=== PATIENT | male | born 2000 | race African-American/Black ===

== ENCOUNTER 2020-06-23 10:13 | Day surgery (SDC) | payer OTHER ==
[~2020-06-23] VITALS: Ht 180.3 cm; Wt 74.8 kg
[~2020-06-23 10:13] MED LIST: LR 1,000 ML IV ONE
[2020-06-23] MEDS ORDERED: fentaNYL 250 MCG/5 ML INJECTION (J3010) As Ordered ONE (13:29)
[2020-06-23] MEDS ORDERED: ROCURONIUM BROMIDE 50 MG/5 ML VIAL As Ordered ONE (13:29)
[2020-06-23] MEDS ORDERED: propofoL 200 MG/20 ML VIAL As Ordered ONE (13:29)
[2020-06-23] MEDS ORDERED: LIDOCAINE 2% 100MG/5ML SDV (FOR ANES.) As Ordered ONE (13:29)
[2020-06-23] MEDS ORDERED: MIDAZOLAM INJ 2MG/2ML VIAL (J2250 PER 1MG) As Ordered ONE (13:29)
[2020-06-23] MEDS ORDERED: LIDOCAINE 2% W/ EPINEPHRINE 1.7 ML DENTAL INJ As Ordered ONE (14:18)
[2020-06-23] MEDS ORDERED: OXYMETAZOLINE 0.05% NASAL SPRAY (AFRIN) As Ordered ONE (14:27)
[2020-06-23] MEDS ORDERED: dexameTHASONE 4 MG/ML 1ML VIAL (J1100 PER 1MG) As Ordered ONE (14:45)
[2020-06-23] MEDS ORDERED: ONDANSETRON 4MG/2ML VIAL As Ordered ONE (15:02)
[2020-06-23] MEDS ORDERED: SUGAMMADEX SODIUM 500 MG/5 ML VIAL (BRIDION) As Ordered ONE (15:02)
[2020-06-23] MEDS ORDERED: KETOROLAC 60MG 2ML VIAL As Ordered ONE (15:03)
[2020-06-23] MEDS ORDERED: fentaNYL 100 MCG/2 ML INJECTION (J3010) As Ordered ONE (16:17)
[2020-06-23] MEDS: fentaNYL 100 MCG/2 ML INJECTION (J3010) IV PRN ×4 (16:20→16:35)
[2020-06-23] MEDS ORDERED: PERCOCET 5MG/325MG TAB PO PRN (16:30)
[2020-06-23] MEDS ORDERED: oxyCODONE 5MG TAB PO PRN ×2 (16:30→18:30)
[2020-06-23] MEDS ORDERED: LR 1,000 ML IV SCH ×2 (16:30→18:30)
[2020-06-23] MEDS ORDERED: ONDANSETRON 4MG/2ML VIAL IV PRN ×2 (16:30→18:30)
[2020-06-23] MEDS ORDERED: oxyCODONE 5MG TAB As Ordered ONE (18:02)
[2020-06-23 18:15] VITALS: BP 134/76
[2020-06-23] MEDS ORDERED: fentaNYL 100 MCG/2 ML INJECTION (J3010) IV PRN (18:30)
[2020-06-23] MEDS ORDERED: CHLORHEXIDINE GLUCONATE 0.12 % 15ML UDC (PERIDEX ORAL RINSE) SSP SCH (21:00)
--- NOTE | 2020-07-07 13:37 | RO ---
DATE OF OPERATION: 06/23/2020 INDICATION FOR SURGERY: This 19-year-old male with past medical history significant for G6PD deficiency and previous extraction of tooth #1 under IV sedation during which time the patient became combative, was reevaluated at the [facility]. The patient was deemed an appropriate candidate for extraction of teeth 16, 17 and 32 under general anesthesia due to his combative nature while under IV sedation. The patient was scheduled for [facility] to have teeth 16, 17 and 32 extracted under general nasoendotracheal anesthesia. PREOPERATIVE DIAGNOSES: * Impacted malposed symptomatic teeth 16, 17 and 32. * Missing tooth #1. POSTOPERATIVE DIAGNOSES: Consistent with preoperative diagnoses and indications for surgery. SURGEON: Danny Blake DMD LABORATORY SPECIMENS: Teeth 16, 17 and 32 were submitted in formalin for pathologic examination. FINDINGS: Unremarkable. OPERATIONS PERFORMED: * Extraction of full bony impacted teeth #17 and 32. * Surgical extraction of tooth #16. ANESTHESIA: General nasoendotracheal. DESCRIPTION OF OPERATION: The patient was identified in the preoperative holding area of [facility] where again the risks, benefits, complications and alternatives to the proposed surgery were discussed with the patient. The patient again verbally expressed the desire to proceed with the proposed surgery and signed the surgical consent form. The appropriate consent form was verified to be present in the patients chart signed by the patient and witnessed. The patients history and physical was also updated and signed. The patient was transported to the main operating room #1 at [facility] where he was placed in the supine position on the operating table. All appropriate monitors for general anesthesia were attached to the patient and the patient underwent intravenous induction of general anesthesia followed by subsequent nasal endotracheal intubation without complications. The tube was secured by the coffin maker and surgeon; once the appropriate plane of anesthesia had been achieved the care of the patient was turned over to the surgical team. The patient was draped in the usual sterile fashion for an intraoral procedure of this nature. A surgical time out was performed, the consent was read aloud and all in the room were in agreement as to the correct patient, procedure and surgical sites. The patients oral cavity was then suctioned free of all debris and secretions and throat pack was placed in the patients posterior oropharynx. Local anesthesia consisting of 6 carpules 1.7 mL each of 2% Lidocaine with 1:100,000 Epinephrine were injected into the pre-planned surgical sites for intraoperative hemostasis and postoperative analgesia. Attention was then directed to the patients right posterior mandible where utilizing #15 blade a full thickness mucoperiosteal incision buccal enveloped designed with distal hockey stick release was created. The full thickness mucoperiosteal flap was elevated and the area of impacted tooth #32 was exposed utilizing 703 bur on high speed surgical handpiece. Tooth #32 was exposed utilizing buccal trough, the tooth was sectioned and removed. The inferior alveolar nerve was not visualized and lingual cortical plate was intact. Any sharp bony spicules were smoothed and the surgical site was irrigated of all debris. The surgical site was then closed utilizing 3-0 chromic gut suture in interrupted fashion. Attention was then directed to the patients left posterior mandible where utilizing #15 blade a full thickness mucoperiosteal incision in buccal enveloped fashion with distal hockey stick release was created. A full thickness mucoperiosteal dissection and elevation of the flap was then performed. The area of impacted tooth #17 was identified. Utilizing a 703 bur on high speed surgical handpiece a buccal trough was created and tooth #17 was exposed, sectioned and removed. The inferior alveolar nerve was not visualized and lingual cortical plate was intact. Any sharp bony spicules were smoothed and surgical site was irrigated utilizing copious sterile saline. The surgical site was then closed utilizing 3-0 chromic gut suture in interrupted fashion. Attention was then directed to the patients left maxillary arch where #15 blade was utilized to make a full thickness buccal envelope incision in the area of tooth #16. A full thickness flap was elevated, dental osteotome and mallet were utilized to remove buccal bone and tooth #16 was extracted whole utilizing dental elevators. Surgical site was irrigated and suctioned free of all debris and secretions. Any sharp bony spicules were smoothed. The patients oral cavity was once again suctioned free of any debris and secretions and the previously placed throat pack was removed. The patient's face was cleansed of all surgical debris. The care of the patient was returned to the anesthesia provider by whom he was aroused, awakened and extubated without complications. There were no apparent surgical or anesthetic complications. The patient appeared to tolerate the procedure well. Estimated blood loss 5 mL. Fluids: 1 liter lactated Ringer's. Urine output: No measured, no Mena catheter was needed for this case. MTDD
== END 2020-06-23 18:25 | disposition home or self-care (01) ==
LOC: M SDC 10:13
PROVIDERS: ATTEND Dentist
DX: K01.1 Impacted teeth (principal); D75.A Glucose-6-phosphate dehydrogenase (G6PD) deficiency without anemia; F17.210 Nicotine dependence, cigarettes, uncomplicated; J30.2 Other seasonal allergic rhinitis; J45.990 Exercise induced bronchospasm; Z88.2 Allergy status to sulfonamides; Z88.6 Allergy status to analgesic agent
CPT/HCPCS: 88300; D7210; D7240; J1100; J1885; J2250; J2405; J3010